=== PATIENT | male | born 1950 | race Caucasian/White ===

== ENCOUNTER 2016-08-02 11:15 | Outpatient (RCR) | payer OTHER, MEDICARE ==
[~2016-08-02 11:15] MED LIST: ASPIRIN 81M81 MG/TA2 PO; D-31000 IU PO; FLOMAX 0.40.4 MG/CAP PO; FLOVENT DI50 MCG/Act IH; LOPRESSOR 225 MG/TAB PO; MULTIPLE VITAMI1 CAP PO; NORCO 325 MG-7.1 TAB PO; OMEGA 31000 MG; PRAVACHOL 20MG20 MG PO; PREPH; PRINZIDE 25 MG-1 TAB PO; TRIAMC 0.1 454 TP; TRIAMCINOLONE A15 G1 TP; VITAMIN C PUR1000 MG PO; XANAX 0.5MG0.5 MG PO; ZYBAN150 M1; ZYRTEC-D 5 MG-11 TER PO
== END 2016-09-10 09:53 | disposition still patient (30) ==
LOC: MKS.ESL.PT 11:15
DX: M25.551 Pain in right hip (principal); Z98.890 Other specified postprocedural states
CPT/HCPCS: G8978-GP; G8979-GP

== ENCOUNTER → 2017-08-03 | Outpatient (CLI) | payer MEDICARE, OTHER | LOC: COL.RAD 11:01 | DX: Z13.6 Encounter for screening for cardiovascular disorders (principal); I77.811 Abdominal aortic ectasia ==

== ENCOUNTER → 2021-06-10 | Outpatient (CLI) | payer MEDICARE, OTHER | LOC: COL.RAD 09:32 | DX: J43.9 Emphysema, unspecified (principal); R91.1 Solitary pulmonary nodule; Z87.891 Personal history of nicotine dependence; Z95.0 Presence of cardiac pacemaker ==

== ENCOUNTER 2022-10-27 07:29 | Day surgery (SDC) | payer MEDICARE, OTHER ==
[~2022-10-27] VITALS: Ht 175.3 cm; Wt 88.6 kg
[2022-10-27] VITALS (8 sets, daily range): BP systolic 84–127; BP diastolic 54–68; PULSE 53–73; TEMP 97.9–98.2
[2022-10-27 08:49] LABS: CREATININE, serum 0.91 mg/dL (0.72-1.25); POTASSIUM 4.1 mmol/L (3.5-4.5)
[2022-10-27] MEDS ORDERED: PRINIVIL40 MG PO (09:20)
[2022-10-27] MEDS ORDERED: TOPROL XL 50MG50 MG PO (09:21)
[2022-10-27] MEDS ORDERED: XANAX 0.5MG0.5 MG PO (09:22)
[2022-10-27] MEDS ORDERED: ASPIRIN E.C. 8181 MG PO (09:23)
[2022-10-27] MEDS ORDERED: LIPITOR 80MG80 MG PO (09:23)
[2022-10-27] MEDS ORDERED: VENTOLIN0.09 MG IH (09:24)
[2022-10-27] MEDS ORDERED: ANORO IH (09:24)
[2022-10-27] MEDS ORDERED: PRILOSEC 20MG20 MG PO (09:25)
[2022-10-27] MEDS ORDERED: MULTI VITAMINS1 TAB PO (09:26)
[2022-10-27] MEDS ORDERED: VITAMINC1000TA PO (09:26)
[2022-10-27] MEDS ORDERED: ZYRTEC 10MG10 MG PO (09:28)
[2022-10-27] MEDS ORDERED: VITAMIN D 400400 IU PO (09:28)
[2022-10-27] MEDS ORDERED: FLONASEALLERGY NS (09:29)
[2022-10-27] MEDS ORDERED: IMDUR 60MG60 MG/TAB PO (09:30)
[2022-10-27] MEDS ORDERED: ZOLOFT 100MG100 MG PO (09:32)
[2022-10-27] MEDS ORDERED: CALCIUM 600MG+D1 TAB PO (09:32)
[2022-10-27] MEDS ORDERED: ULTRAM 50MG TAB50 MG PO (09:33)
--- NOTE | 2022-10-27 19:44 | NUR ---
SHIFT REPORT FROM GERARDO GIVENS. PATIENT IN BED ON ROOM ENTRY. ALERT AND ORIENTED. DENIES PAIN. HS MEDS PER EMAR. ATE 100% OF DINNER AND TOLERATED. R SHOULDER AQUACELL X2 WITH DIME SIZE DRAINAGE. SLING IN PLACE. ICE REPLACED TO R SHOULDER. REFUSES SCDS AT THIS TIME BUT STATES HE WILL WEAR THEM TO BED. ALSO REQUESTS TYLENOL BEFORE BED. DENIES ADDITIONAL NEEDS AT THIS TIME. CALL LIGHT IN REACH.
[2022-10-28 03:42] VITALS: BP 137/72; PULSE 61; TEMP 98.2
[2022-10-28 07:20] LABS: HEMOGLOBIN 12.1 g/dl (13.5-18.0)
[2022-10-28 07:34] LABS: CALCIUM 8.9 mg/dL (8.4-10.2); CREATININE, serum 1.23 mg/dL (0.72-1.25)
[2022-10-28 07:46] VITALS: BP 136/73; PULSE 62; TEMP 98.3
--- NOTE | 2022-10-28 10:12 | NUR ---
SW met with the patient to discuss discharge plan. The patient lives in [place] with his , Lucy (ph#[phone]). He reports independence with ADLs and believes that he has a cane. The patient's PCP is Dr. Rouse. The patient does not have a DPOA-HC in EMR, but he states that he does have one completed and that it designates his . The patient plans to return home with his upon discharge. He states that he is waiting to hear from Dr. Fraire on if he will need outpatient PT. He states that if Dr. Fraire does recommend outpatient PT, he will go to [facility]. No additional needs at this time. *Discharge plan: home with *
[2022-10-28 11:20] VITALS: BP 130/55; PULSE 62; TEMP 98
--- NOTE | 2022-10-28 11:31 | NUR ---
Initial visit: Pt was in his chair ready to be dismissed. Pt has no needs right now. [facility] will follow up as needed.
[2022-10-28 15:54] LABS: CREATININE, serum 1.17 mg/dL (0.72-1.25); POTASSIUM 4.5 mmol/L (3.5-4.5)
[2022-10-28 16:09] VITALS: BP 138/68; PULSE 64; TEMP 97.6
[2022-10-28] MEDS ORDERED: CEPHALEXIN500 M1 PO (16:51)
[2022-10-28] MEDS ORDERED: NORCO 325 MG-51 TAB PO (16:51)
== END 2022-10-28 17:42 | disposition home or self-care (01) ==
LOC: SDCO 07:29 → SURG 12:43 → SDCO 10-28 17:42
PROVIDERS: Nurse Anesthetist, Certified Registered; Physician Assistant
DX: M75.121 Complete rotator cuff tear or rupture of right shoulder, not specified as traumatic (principal); M19.91 Primary osteoarthritis, unspecified site; K21.9 Gastro-esophageal reflux disease without esophagitis; I10 Essential (primary) hypertension; I25.10 Atherosclerotic heart disease of native coronary artery without angina pectoris; J44.9 Chronic obstructive pulmonary disease, unspecified; E87.1 Hypo-osmolality and hyponatremia; E78.5 Hyperlipidemia, unspecified; F17.210 Nicotine dependence, cigarettes, uncomplicated; F32.A Depression, unspecified; F41.9 Anxiety disorder, unspecified; Z95.818 Presence of other cardiac implants and grafts; Z79.899 Other long term (current) drug therapy; Z95.0 Presence of cardiac pacemaker; Z79.82 Long term (current) use of aspirin; Z79.891 Long term (current) use of opiate analgesic
CPT/HCPCS: OP; A4619; A9284; C1713; C1776; J0690; J1100; J1170; J1580; J1885; J2270; J2370; J2405; J2704; J3010; J7120

== ENCOUNTER → 2022-10-29 | Outpatient (CLI) | payer MEDICARE, OTHER ==
[~2022-10-29] MED LIST changes: +ANORO IH; +ASPIRIN E.C. 8181 MG PO; +CALCIUM 600MG+D1 TAB PO; +CEPHALEXIN500 M1 PO; +FLONASEALLERGY NS; +IMDUR 60MG60 MG/TAB PO; +LIPITOR 80MG80 MG PO; +MULTI VITAMINS1 TAB PO; +NORCO 325 MG-51 TAB PO; +PRILOSEC 20MG20 MG PO; +PRINIVIL40 MG PO; +TOPROL XL 50MG50 MG PO; +ULTRAM 50MG TAB50 MG PO; +VENTOLIN0.09 MG IH; +VITAMIN D 400400 IU PO; +VITAMINC1000TA PO; +ZOLOFT 100MG100 MG PO; +ZYRTEC 10MG10 MG PO
[2022-10-29 12:31] LABS: CALCIUM 8.8 mg/dL (8.4-10.2); CREATININE, serum 0.8 mg/dL (0.72-1.25); POTASSIUM 4.4 mmol/L (3.5-4.5)
== END ==
LOC: COL.LAB 11:59
DX: E87.1 Hypo-osmolality and hyponatremia (principal)

== ENCOUNTER → 2022-11-01 | Outpatient (CLI) | payer MEDICARE, OTHER ==
[2022-11-01 11:48] LABS: CALCIUM 8.8 mg/dL (8.4-10.2); CREATININE, serum 0.82 mg/dL (0.72-1.25); POTASSIUM 3.8 mmol/L (3.5-4.5)
== END ==
LOC: COL.LAB 10:40
PROVIDERS: Physician Assistant
DX: E87.1 Hypo-osmolality and hyponatremia (principal)

== ENCOUNTER → 2022-11-04 | Outpatient (CLI) | payer MEDICARE, OTHER ==
[2022-11-04 13:47] LABS: BASO # 0.1 K/mm3 (0.0-0.2); BASO % 0.4 % (0.0-2.0); EOS # 0.1 K/mm3 (0.0-0.7); EOS % 0.4 % (0.0-4.0); GRAN # 12.2 K/mm3 (1.4-6.5); GRAN % 84.9 % (42.2-75.2); HEMOGLOBIN 11.6 g/dl (13.5-18.0); LYMPH # 0.9 K/mm3 (1.2-3.4); LYMPH % 6.3 % (20.0-51.0); MEAN CELL VOLUME 90 fl (80.0-100.0); MEAN CORPUSCULAR HEMOGLOBIN 31 pg (27-31); MEAN CORPUSCULAR HGB CONC 34 g/dl (33.0-37.0); MONO # 1.1 K/mm3 (0.1-0.6); MONO % 7.5 % (1.7-9.3); PLATELET COUNT 276 K/mm3 (130-400); RED BLOOD COUNT 3.79 M/mm3 (4.20-5.60); REDCELL DISTRIBUTION WIDTH-CV 13.3 % (11.5-14.5)
[2022-11-04 14:04] LABS: ALBUMIN 3.2 gm/dL (3.4-4.8); BILIRUBIN,TOTAL 1.3 mg/dL (0.2-1.2); CALCIUM 9.1 mg/dL (8.4-10.2); CREATININE, serum 0.95 mg/dL (0.72-1.25); TOTAL PROTEIN 6.3 gm/dL (6.2-8.1)
== END ==
LOC: COL.LAB 13:23
PROVIDERS: Internal Medicine
DX: E87.1 Hypo-osmolality and hyponatremia (principal); R42 Dizziness and giddiness

== ENCOUNTER → 2022-12-09 | Outpatient (CLI) | payer MEDICARE, OTHER | LOC: COL.RAD 09:41 | DX: J43.2 Centrilobular emphysema (principal); R91.8 Other nonspecific abnormal finding of lung field; Z87.891 Personal history of nicotine dependence ==

== ENCOUNTER 2022-12-31 10:44 | Inpatient (IN) | payer MEDICARE, OTHER ==
[~2022-12-31] VITALS: Ht 175.3 cm; Wt 86.0 kg
[2022-12-31] VITALS (8 sets, daily range): BP systolic 124–154; BP diastolic 68–81; PULSE 61–89; TEMP 97.5–98.6
[2022-12-31 14:43] LABS: BASO % 0.4 % (0.0-2.0); EOS % 0.2 % (0.0-4.0); GRAN # 9.2 K/mm3 (1.4-6.5); GRAN % 86.1 % (42.2-75.2); HEMATOCRIT 38.3 % (42.0-52.0); HEMOGLOBIN 13.6 g/dl (13.5-18.0); LYMPH # 0.7 K/mm3 (1.2-3.4); LYMPH % 6.1 % (20.0-51.0); MEAN CELL VOLUME 83 fl (80.0-100.0); MEAN CORPUSCULAR HEMOGLOBIN 29 pg (27-31); MEAN CORPUSCULAR HGB CONC 36 g/dl (33.0-37.0); MEAN PLATELET VOLUME 9.3 fl (7.4-10.4); MONO # 0.7 K/mm3 (0.1-0.6); MONO % 6.7 % (1.7-9.3); PLATELET COUNT 311 K/mm3 (130-400); RED BLOOD COUNT 4.63 M/mm3 (4.20-5.60); REDCELL DISTRIBUTION WIDTH-CV 14.4 % (11.5-14.5)
--- NOTE | 2022-12-31 14:53 | NUR ---
PT ARRIVED TO UNIT WITH . THERE WAS SLIGHT CONFUSION ON WHETHER PT WANTED TO LEAVE TO CONTINUE CARE AT [facility] OR STAY AT THIS FACILITY. PT DID NOT WANT TO LEAVE AMA AND AGREED TO STAY HERE TO BE TREATED FOR HYPONATREMIA. BLANCHE FROM [facility] STARTED AN IV IN PT'S R HAND, BLOOD PULLED AT THAT TIME. DR. PRESCOTT IN TO VISIT WITH PT, , AND DAUGHTER. RESPIRATORY IN TO OBTAIN EKG. PT ORIENTED TO ROOM. PT IS A&O X4. NO COMPLAINTS AT THIS TIME. PT DID HAVE A RECENT FALL AND HAS NOTED BRUISING TO RIGHT EYE, STATED HE TRIPPED ON THE STEPS OF HIS CAMPER.
[2022-12-31 14:54] LABS: ALBUMIN 3.7 gm/dL (3.4-4.8); CALCIUM 9.6 mg/dL (8.4-10.2); CREATININE, serum 0.82 mg/dL (0.72-1.25); POTASSIUM 4.6 mmol/L (3.5-4.5)
[2022-12-31 21:45] LABS: OSMOLALITY-URINE random 446 Osm/kg (50-1200)
[2022-12-31 23:00] LABS: CREATININE, serum 0.72 mg/dL (0.72-1.25)
--- NOTE | 2022-12-31 23:31 | NUR ---
Assessment completed at 2129. Pt is A&Ox4. No discomfort or pain was reported at this time. Medication given per emar. R Hand INT is CDI. R eye ecchymosis was noticed during assessment. Pt has a no free H2O restriction order in place. Around 15 min later, 2144, pt threw up and expressed not having nausea or any other symptom at the moment.
[2023-01-01] VITALS (11 sets, daily range): BP systolic 127–171; BP diastolic 52–83; PULSE 62–95; TEMP 97.9–98.5
[2023-01-01 06:38] LABS: BASO # 0.1 K/mm3 (0.0-0.2); BASO % 0.5 % (0.0-2.0); GRAN # 8.3 K/mm3 (1.4-6.5); GRAN % 82.6 % (42.2-75.2); HEMATOCRIT 37.4 % (42.0-52.0); HEMOGLOBIN 13.3 g/dl (13.5-18.0); LYMPH # 0.9 K/mm3 (1.2-3.4); LYMPH % 8.5 % (20.0-51.0); MEAN CELL VOLUME 81 fl (80.0-100.0); MEAN CORPUSCULAR HEMOGLOBIN 29 pg (27-31); MEAN CORPUSCULAR HGB CONC 36 g/dl (33.0-37.0); MEAN PLATELET VOLUME 9.3 fl (7.4-10.4); MONO # 0.8 K/mm3 (0.1-0.6); MONO % 7.9 % (1.7-9.3); PLATELET COUNT 274 K/mm3 (130-400); RED BLOOD COUNT 4.63 M/mm3 (4.20-5.60); REDCELL DISTRIBUTION WIDTH-CV 14.3 % (11.5-14.5)
[2023-01-01 06:54] LABS: CALCIUM 9.2 mg/dL (8.4-10.2); CREATININE, serum 0.72 mg/dL (0.72-1.25); POTASSIUM 3.8 mmol/L (3.5-4.5)
--- NOTE | 2023-01-01 13:43 | NUR ---
Shift assessment is done this morning. Patient is comfortably sitting on chair. Denies any pain or discomfort. Sodium is 121 and chloride is 89. Provider is notified. No new order at this time. Will continue to monitor.
--- NOTE | 2023-01-01 14:29 | NUR ---
THIS RN OVERSAW PT CARE AND MEDICATION ADMINISTRATION COMPLETED BY CHON DO.
[2023-01-01 22:23] LABS: CREATININE, serum 0.72 mg/dL (0.72-1.25)
[2023-01-02 00:11] VITALS: BP 131/64; PULSE 61; TEMP 97.4
[2023-01-02 01:00] VITALS: BP_SYST 131
[2023-01-02 04:22] VITALS: BP 123/67; PULSE 71; TEMP 97.5
--- NOTE | 2023-01-02 04:58 | NUR ---
Pt in bed for shift assessment at 2130. Medication per emar was administered. Pt tolerated his meds at this time. Pt was instructed to take his salt tabs one by one. No pain or discomfort was reported at this time. R hand INT is CDI. Belongings and call light are within reach.
[2023-01-02 05:00] VITALS: BP_SYST 123
[2023-01-02 07:41] LABS: CALCIUM 9.2 mg/dL (8.4-10.2); CREATININE, serum 0.7 mg/dL (0.72-1.25); POTASSIUM 3.9 mmol/L (3.5-4.5)
[2023-01-02 07:43] VITALS: BP 141/70; PULSE 61; TEMP 98.1
[2023-01-02 08:30] VITALS: BP_SYST 141
[2023-01-02] MEDS ORDERED: SALT PO (08:42)
[2023-01-02] MEDS ORDERED: URE-NA PO (08:42)
--- NOTE | 2023-01-02 08:52 | NUR ---
PT SITTING UP IN RECLINER EATING BREAKFAST UPON ENTERING ROOM. MORNING MEDICATIONS GIVEN. SHIFT ASSESSMENT COMPLETED. PT DENIES ANY PAIN OR NEEDS, STATES WILL BE HERE SHORTLY FOR D/C. THIS RN REMOVED PT IV. CALL LIGHT WITHIN REACH. WORKING ON DISCHARGE PACKET AT THIS TIME.
--- NOTE | 2023-01-02 10:05 | NUR ---
SW met with pt for intake. Pt reports living in [place] with Lucy Urban [place]KA who was present. confirmed number as [phone]. Pt denied O2 at home and/or DME. Pt reports PCP is and pharmacy is [facility] but denies any issues. Pt reports having 2 stairs in the camper they live in and fell 2 weeks ago due to losing footing after carrying too many items but denies this being a historical. Pt reports having DPOA with Lucy as designee and reports on file with Dr. Rouse. DC plan home with Lucy in [place]
--- NOTE | 2023-01-02 10:23 | NUR ---
TELEMETRY REMOVED. DISCHARGE INSTRUCTIONS REVIEWED, AT BEDSIDE, ALL QUESTIONS ANSWERED. PHARMACY BRINGING MEDICATION PRIOR TO DISCHARGE. WILL BE ESCORTED DOWN BY [facility]IA [facility] STAFF.
--- NOTE | 2023-01-02 10:36 | NUR ---
SW went over IM with pt and pt signed without any concern and received copy.
== END 2023-01-02 11:21 | disposition home or self-care (01) | DRG 644 ==
LOC: MEDICAL 10:44
PROVIDERS: Internal Medicine; Physician Assistant; ADMIT Internal Medicine
DX: E22.2 Syndrome of inappropriate secretion of antidiuretic hormone (principal); E44.0 Moderate protein-calorie malnutrition; J44.9 Chronic obstructive pulmonary disease, unspecified; K21.9 Gastro-esophageal reflux disease without esophagitis; F32.A Depression, unspecified; R91.8 Other nonspecific abnormal finding of lung field; G47.00 Insomnia, unspecified; E78.5 Hyperlipidemia, unspecified; I10 Essential (primary) hypertension; Z96.611 Presence of right artificial shoulder joint; R05.3 Chronic cough; Z96.643 Presence of artificial hip joint, bilateral; I25.10 Atherosclerotic heart disease of native coronary artery without angina pectoris; Z91.81 History of falling; Z95.5 Presence of coronary angioplasty implant and graft; Z95.0 Presence of cardiac pacemaker; Z79.82 Long term (current) use of aspirin; Z87.891 Personal history of nicotine dependence; Z79.899 Other long term (current) drug therapy; Z88.6 Allergy status to analgesic agent; Z68.27 Body mass index [BMI] 27.0-27.9, adult; Z23 Encounter for immunization
CPT/HCPCS: J1650